=== PATIENT | male | born 1975 | race Caucasian/White ===

== ENCOUNTER 2019-03-23 11:36 | Emergency (ER) | payer OTHER ==
[~2019-03-23] VITALS: Ht 172.7 cm; Wt 102.1 kg
== END 2019-03-23 19:54 | disposition home or self-care (01) ==
LOC: ER 11:36
DX: I16.0 Hypertensive urgency (principal); I10 Essential (primary) hypertension

== ENCOUNTER 2019-09-08 18:39 | Emergency (ER) | payer OTHER ==
[~2019-09-08] VITALS: Ht 172.7 cm; Wt 96.2 kg
[2019-09-08] MEDS ORDERED: ZESTRIL10 M1 (19:09)
== END 2019-09-08 21:00 | disposition home or self-care (01) ==
LOC: ER 18:39
DX: L01.02 Bockhart's impetigo (principal)

== ENCOUNTER 2021-12-11 11:45 | Emergency (ER) | payer OTHER ==
[~2021-12-11] VITALS: Ht 172.7 cm; Wt 102.1 kg
[~2021-12-11 11:45] MED LIST: ZESTRIL10 M1
[2021-12-11] MEDS ORDERED: COZAAR50 MG PO (12:03)
[2021-12-11] MEDS ORDERED: LIPITOR40 M1 PO (12:04)
[2021-12-11] MEDS ORDERED: DICY20TA PO (14:30)
[2021-12-11] MEDS ORDERED: CIPRO500 MG PO (14:30)
[2021-12-11] MEDS ORDERED: METRONIDAZOLE500 MG PO (14:30)
[2021-12-11] MEDS ORDERED: PROTONIX40 MG PO (14:30)
== END 2021-12-11 15:36 | disposition home or self-care (01) ==
LOC: ER 11:45
DX: K57.92 Diverticulitis of intestine, part unspecified, without perforation or abscess without bleeding (principal); R10.32 Left lower quadrant pain